=== PATIENT | female | born 2000 | race Caucasian/White ===

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

== ENCOUNTER 2018-06-16 18:28 | Emergency (ER) | payer OTHER ==
[~2018-06-16] VITALS: Ht 167.6 cm; Wt 79.1 kg
[~2018-06-16 18:28] MED LIST: ACET500C5 PO; ALBU8.5H8 INH; BENZ-6 PO; CETI1TAB6 PO
[2018-06-16 18:50] VITALS: BP 129/56; PULSE 92; RESP 18; Ht 167.6 cm; Wt 79.1 kg
[2018-06-16] MEDS ORDERED: ONDA4TAB14 PO (20:53)
[2018-06-16] MEDS ORDERED: BISM-34 PO (20:53)
[2018-06-16] MEDS ORDERED: RANI150T35 PO (20:53)
--- NOTE | 2018-06-17 00:31 | ERD ---
ER Documentation Chief Complaint Chief Complaint vomiting/abdominal pain since last night HPI This patient is a 18-year-old female with past medical history of asthma presenting to the emergency department complaining of intermittent nausea, vomiting, diarrhea after drinking approximately 2.5 glasses of red wine last night. She reports a burning sensation to her midepigastric region. Overall, she has been improving. She denies any fevers, chills, or other symptoms at this time. ROS All systems reviewed and are negative except as per history of present illness. Medications Home Meds Active Scripts Bismuth Subsalicylate* (Bismuth Subsalicylate*) 262 Mg/15 Ml Oral.susp, 15 ML PO Q6 PRN for DIARRHEA, #100 ML Prov:MANISHA JUAN PA-C 06/16/18 Ranitidine Hcl* (Zantac*) 150 Mg Tablet, 150 MG PO BID PRN for EPIGASTRIC PAIN, #30 TAB Prov:MANISHA JUAN PA-C 06/16/18 Ondansetron (Ondansetron Odt) 4 Mg Tab.rapdis, 4 MG PO Q6H PRN for NAUSEA AND/OR VOMITING, #10 TAB Prov:MANISHA JUAN PA-C 06/16/18 Benzonatate* (Tessalon Perle*) 100 Mg Capsule, 100 MG PO Q8H PRN for COUGH, #30 CAP Prov:WILFREDO BALBUENA PA-C 12/02/17 Acetaminophen* (Tylophen*) 500 Mg Capsule, 1 CAP PO Q4 PRN for PAIN AND OR ELEVATED TEMP, #30 CAP Prov:WILFREDO BALBUENA PA-C 12/02/17 Cetirizine/Pseudoephedrine (Zyrtec-D) 5-120 Mg Tab.er.12h, 1 TAB PO Q12, #30 TAB Prov:WILFREDO BALBUENA PA-C 12/02/17 Albuterol Sulfate* (Proair HFA*) 8.5 Gm Hfa.aer.ad, 2 PUFF INH Q4H PRN for WHEEZING AND SOB, #1 INHALER Prov:WILFREDO BALBUENA PA-C 12/02/17 Allergies Allergies: Coded Allergies: No Known Drug Allergies (Verified Allergy, Unknown, 06/16/18) shrimp (Verified Allergy, Unknown, 12/02/17) PMhx/Soc History of Surgery: No Anesthesia Reaction: No Hx Neurological Disorder: No Hx Respiratory Disorders: Yes (asthma) Hx Cardiac Disorders: No Hx Psychiatric Problems: No Hx Miscellaneous Medical Probl: No Hx Alcohol Use: No Hx Substance Use: Yes (smokes marijuana) Hx Tobacco Use: No Smoking Status: Current every day smoker FmHx Family History: No diabetes Physical Exam Vitals Vital Signs Date Temp Pulse Resp B/P (MAP) Pulse Ox O2 O2 Flow FiO2 Time Delivery Rate 06/16/18 100.1 92 18 129/56 98 18:50 (80) Physical Exam Const: No acute distress Head: Atraumatic Eyes: Normal Conjunctiva ENT: Normal External Ears, Nose and Mouth. Neck: Full range of motion. No meningismus. Resp: Clear to auscultation bilaterally Cardio: Regular rate and rhythm, no murmurs Abd: Soft, non tender, non distended. Normal bowel sounds. No rebound tenderness or guarding. No McBurney's point tenderness. Skin: No petechiae or rashes Back: No midline or flank tenderness Ext: No cyanosis, or edema Neur: Awake and alert Psych: Normal Mood and Affect Procedures/MDM Patient is a 18-year-old female presenting to the emergency department complaining of intermittent nausea, vomiting, diarrhea which began yesterday after drinking 2.5 glasses of red wine. Patient symptoms are likely secondary to alcohol or gastroenteritis, likely viral etiology. Patient is nontoxic and well-appearing in the department. Her abdominal examination is not concerning for acute surgical abdomen. Vital signs are stable. Her temperature was rechecked in the room and was 98.8 F. I doubt acute surgical abdomen, sepsis, bowel obstruction, or other emergencies. Patient advised to return the department immediately for any new or worsening or concerning symptoms and have close follow-up with her primary care physician. She agreed with the diagnosis, plan, need for follow-up, return precautions. All questions answered at discharge. Departure Diagnosis: Primary Impression: Nausea, vomiting, and diarrhea Condition: Fair Patient Instructions: Food Poisoning Or Gastroenteritis (6Y-Adult) Referrals: COMMUNITY CLINICS YOU HAVE RECEIVED A MEDICAL SCREENING EXAM AND THE RESULTS INDICATE THAT YOU DO NOT HAVE A CONDITION THAT REQUIRES URGENT TREATMENT IN THE EMERGENCY DEPARTMENT. FURTHER EVALUATION AND TREATMENT OF YOUR CONDITION CAN WAIT UNTIL YOU ARE SEEN IN YOUR DOCTORS OFFICE WITHIN THE NEXT 1-2 DAYS. IT IS YOUR RESPONSIBILITY TO MAKE AN APPOINTMENT FOR FOLOW-UP CARE. IF YOU HAVE A PRIMARY DOCTOR --you should call your primary doctor and schedule an appointment IF YOU DO NOT HAVE A PRIMARY DOCTOR YOU CAN CALL OUR PHYSICIAN REFERRAL HOTLINE AT IF YOU CAN NOT AFFORD TO SEE A PHYSICIAN YOU CAN CHOSE FROM THE FOLLOWING [facility] [id number] [facility] [address] [facility] [facility] [address] [facility] [address] [facility]. [facility] [address] [address] [facility]. [address] Additional Instructions: Call your primary care doctor TOMORROW for an appointment during the next 1-2 days.See the doctor sooner or return here if your condition worsens before your appointment time. MANISHA JUAN PA-C Jun 17, 2018 00:31
== END 2018-06-16 21:10 | disposition home or self-care (01) ==
LOC: FTE 18:28
DX: R11.2 Nausea with vomiting, unspecified (principal); R19.7 Diarrhea, unspecified; J45.909 Unspecified asthma, uncomplicated; F17.210 Nicotine dependence, cigarettes, uncomplicated
CPT/HCPCS: 99283